=== PATIENT | female | born 1980 | race Two or more races ===

== ENCOUNTER 2020-07-06 08:58 | Day surgery (SDC) | payer MEDICAID ==
[2020-07-01 14:52] LABS: APPEARANCE,URINE CLEAR; BILIRUBIN, URINE NEGATIVE (NEGATIVE); COLOR,URINE PALE YELLOW; GLUCOSE, URINE (UA) NEGATIVE (NEGATIVE); KETONES,URINE NEGATIVE (NEGATIVE); LEUKOCYTE ESTERASE ,URINE NEGATIVE (NEGATIVE); NITRITE,URINE NEGATIVE (NEGATIVE); PH,URINE 7 (4.5-8.0); PROTEIN,URINE NEGATIVE (NEGATIVE); UROBILINOGEN,URINE NORMAL MG/DL (0.0-1.0)
[2020-07-01 14:55] LABS: BASOPHILS % (AUTO) 1.7 % (0.0-2.0); EOSINOPHILS % (AUTO) 3.5 % (0.0-3.0); HEMATOCRIT 44.7 % (37.0-47.0); HEMOGLOBIN 13.5 G/DL (12.0-16.0); LYMPHOCYTES % (AUTO) 36.1 % (20.0-45.0); MEAN CORPUSCULAR VOLUME 84 FL (80-99); MONOCYTES % (AUTO) 6.3 % (1.0-10.0); NEUTROPHILS % (AUTO) 52.4 % (45.0-75.0); PLATELET COUNT 409 K/UL (150-450); RED BLOOD COUNT 5.35 M/UL (4.20-5.40); WHITE BLOOD COUNT 8.5 K/UL (4.8-10.8)
--- NOTE | 2020-07-05 10:59 | Pre-op HX & Phy Repo 2 SIG ---
DATE OF ADMISSION: 07/06/2020 Scheduled for outpatient surgery, July 06, 2020. HISTORY OF PRESENT ILLNESS: The patient is a 39-year-old female in overall good health, who developed a nodule in her right breast upper inner quadrant. Imaging revealed in the right breast at 3 o'clock, 4 cm from the nipple, was a 2.4 x 1.5 x 2.3 cm mass. 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 She has no prior history of breast disease. No family history of breast cancer. She is scheduled to undergo excision of her phyllodes tumor. PAST MEDICAL HISTORY/MEDICATIONS: None. ALLERGIES: None. OPERATIONS: None. REVIEW OF SYSTEMS: She is 4, para 4. She has regular menstrual periods. PHYSICAL EXAMINATION: GENERAL: The patient is 5 feet 6 inches, 146 pounds. VITAL SIGNS: Within normal limits. HEENT: Within normal limits. LUNGS: Clear. HEART: Regular rhythm. BREASTS: Small to medium in size and slightly ptotic. The left breast is unremarkable. The right breast has a 2.5 cm mobile, smooth, rounded mass in the upper inner quadrant at 2 to 3 o'clock just medial to the areolar border. There is no axillary or supraclavicular lymphadenopathy. ABDOMEN: Soft. PELVIC: Per primary care. RECTAL: Per primary care. EXTREMITIES: Without edema. NEUROLOGIC: Physiologic. IMPRESSION: Phyllodes tumor, right breast. PLAN: Excision of right breast mass with core biopsy revealing phyllodes tumor. I have had a full discussion with the patient regarding the nature of her condition, the nature of the surgery, indications, alternatives, options, and risks including bleeding, infection, recurrence despite complete excision, need for additional treatment based on final pathology, potential for another tumor to develop in the same or other breast, scarring or distortion of the breast or nipple, etc. All questions have been answered. She understands and agrees to proceed. Jose Alfredo Jones M.D. DR: GALLO JOB#: [id number] CC:
[~2020-07-06] VITALS: Ht 167.6 cm; Wt 62.6 kg
[2020-07-06] VITALS (12 sets, daily range): BP systolic 96–120; BP diastolic 54–82
[2020-07-06] MEDS ORDERED: NS Irrig 1000ml ONE (08:59)
[2020-07-06] MEDS ORDERED: Sterile Water Irrig 1000ml IRRIG ONE (08:59)
[2020-07-06] MEDS ORDERED: LR 1000ml ONE (08:59)
[2020-07-06] MEDS ORDERED: Bupivacaine 0.5% Inj 30 ml vial INJ ONE (10:23)
[2020-07-06] MEDS ORDERED: Lidocaine 1% Plain 30 ml INJ ONE (10:24)
[2020-07-06] MEDS ORDERED: Bacitracin 50000 Units Vial ONE (10:24)
[2020-07-06] MEDS ORDERED: NeoSporin Gu Irrig 1ml Amp IRRIG ONE (10:24)
[2020-07-06] MEDS ORDERED: Midazolam 2mg/2ml Inj ONE (10:30)
[2020-07-06] MEDS ORDERED: fentaNYL 100 mcg/2 mL IV ONE (10:30)
[2020-07-06] MEDS ORDERED: Lidocaine 1% MPF 10mg/ml 5ml ONE (10:40)
--- NOTE | 2020-07-06 10:58 | Anethesia Preoperative Eval ---
Anesthesia Pre-op PMH/ROS General Date of Evaluation: Jul 06, 2020 Time of Evaluation: 10:55 Anesthesiologist: Juju ASA Score: ASA 2 Mallampati Score Class I : Soft palate, uvula, fauces, pillars visible Class II: Soft palate, uvula, fauces visible Class III: Soft palate, base of uvula visible Class IV: Only hard plate visible Mallampati Classification: Class II Surgeon: Karen Diagnosis: R breast mass Surgical Procedure: Excision of breast mass Anesthesia History: none Family History: no anesthesia problems Allergies: Coded Allergies: No Known Allergies (Unverified , 07/01/20) Medications: see eMAR Patient NPO?: Yes Past Medical History Cardiovascular: Denies: HTN, CAD, NE, valve dz, arrhythmia, other Pulmonary: Denies: asthma, COPD, [place], other Gastrointestinal/Genitourinary: Reports: GERD - mild; Denies: CRI, ESRD, other Neurologic/Psychiatric: Reports: depression/anxiety; Denies: dementia, CVA, TIA, other Endocrine: Denies: DM, hypothyroidism, steroids, other HEENT: Denies: cataract (L), cataract (R), glaucoma, [place] (L), [place] (R), other Hematology/Immune: Denies: anemia, DVT, bleeding disorder, other Musculoskeletal/Integumentary: Denies: OA, RA, DJD, DDD, edema, other PMH Narrative: as above PSxH Narrative: none Anesthesia Pre-op Phys. Exam Physician Exam Last Vital Signs Date Time Temp Pulse Resp B/P (MAP) Pulse Ox O2 Delivery O2 Flow Rate FiO2 07/06/20 09:22 98.1 88 18 119/82 98 Room Air Constitutional: NAD Neurologic: CN 2-12 intact Cardiovascular: RRR, no M/R/G Respiratory: CTA Gastrointestinal: S/NT/ND Airway Exam Mallampati Score: Class II MO: full Neck: flexible ROM: full Teeth: intact Dentures: no upper, no lower Anesthesia Pre-op A/P Labs see chart Urine Test Test 07/06/20 09:05 Urine HCG, Qualitative Negative (NEGATIVE) Risk Assessment & Plan Assessment: ASA 2 Plan: GA with LMA, PONV prevention Status Change Before Surgery: No Pre-Antibiotics Drug: Ancef 1gr. Given Within 1 Hr of Incision: Yes Time Given: 12:20 Vakulenko,Shan MD Jul 06, 2020 10:58
--- NOTE | 2020-07-06 11:36 | Pre-Procedure Note/Attestation ---
Pre-Procedure Note/Attestation Complete Prior to Procedure Planned Procedure: right Procedure Narrative: Excision of phyllodes tumor right breast Indications for Procedure Pre-Operative Diagnosis: phyllodes tumor right breast Attestation I attest that I discussed the nature of the procedure; its benefits; risks and complications; and alternatives (and the risks and benefits of such altern atives), prior to the procedure, with the patient (or the patient's legal pest control service representative). I attest that, if there was a reasonable possibility of needing a blood transfusion, the patient (or the patient's legal pest control service representative) was given the [facility] standardized written summary, pursuant to the [place] Blood Safety Act ([place] Health and Safety Code # 1645, as amended). I attest that I re-evaluated the patient just prior to the surgery and that there has been no change in the patient's H&P, except as documented below: none Jose Alfredo Jones MD Jul 06, 2020 11:35
[2020-07-06] MEDS ORDERED: Metoclopramide 10mg/2ml Inj IVP PRN (12:00)
[2020-07-06] MEDS ORDERED: Meperidine 25mg/1ml Inj (FOR RIGORS ONLY) IV PRN (12:00)
[2020-07-06] MEDS ORDERED: DiphenhydrAMINE 50mg/ml Inj IVP PRN (12:00)
[2020-07-06] MEDS ORDERED: Midazolam 2mg/2ml Inj IVP PRN (12:00)
[2020-07-06] MEDS ORDERED: Ketorolac 30mg Inj IV PRN (12:00)
[2020-07-06] MEDS ORDERED: LR 1000ml 1,000 ML IVLG SCH (12:00)
--- NOTE | 2020-07-06 12:36 | Brief Operative Note ---
Immediate Post Operative Note Operative Note Pre-op Diagnosis: phyllodes tumor right breast Procedure: excision right breast mass phyllodes tumor Post-op Diagnosis: same Post-op Diagnosis: same as pre-op Findings: consistent w/pre-op dx studies Surgeon: dinorah Anesthesiologist: chelsea Anesthesia: general Specimen: yes - right breast mass Complications: none Condition: stable Fluids: see anesthesia record Estimated Blood Loss: volume - 20cc Drains: none Implant(s) used?: No Jose Alfredo Jones MD Jul 06, 2020 12:36
[2020-07-06] MEDS ORDERED: D5 1/2NS 1,000 ML IV SCH (12:45)
[2020-07-06] MEDS ORDERED: HYDROcodone/Acetamin 5/325 tab ORAL PRN (12:45)
[2020-07-06] MEDS ORDERED: Tylenol #3 tab (300mg/30mg) ORAL PRN (12:45)
[2020-07-06] MEDS ORDERED: HYDROmorphone 1mg/ml Carpuject SUBQ PRN (12:45)
--- NOTE | 2020-07-06 13:29 | Operative Note - Dictated ---
DATE OF OPERATION: 07/06/2020 SURGEON: Jose Alfredo Jones MD. HYDROTREATER OPERATOR: None. ANESTHESIOLOGIST: Shan Matute MD. TYPE OF ANESTHESIA: General. PREOPERATIVE DIAGNOSIS: Right breast mass with core biopsy revealing phyllodes tumor. POSTOPERATIVE DIAGNOSIS: Right breast mass with core biopsy revealing phyllodes tumor. OPERATION PERFORMED: Excision of right breast mass phyllodes tumor. PROCEDURE IN DETAIL: The patient was taken to the operating room and under general anesthesia with sequential compression device stockings in place, she was prepped and draped in usual fashion. She had a palpable mass at 2 to 3 o'clock 4 cm from the nipple measuring 2.4 x 1.5 x 2.3 cm. A curvilinear incision was made overlying the mass in the upper inner quadrant of the right breast and flaps dissected circumferentially achieving hemostasis with cautery. The mass was palpable. There were multiple vessels penetrating into the area of the mass that were difficult to control with cautery. Accordingly, I used the [employer] electrosurgical vessel sealing device to achieve complete hemostasis. The tumor was enucleated in its entirety and given off the field for pathology. The field was irrigated with sterile water and then antibiotic solution and hemostasis carefully achieved. The incision was closed with interrupted 2-0 Vicryl deep dermal subcutaneous sutures followed by continuous 4-0 Vicryl subcuticular suture. Benzoin and half-inch Steri-Strips were applied followed by dry sterile dressing. Final sponge and needle counts were correct. The patient tolerated the procedure well and left the operating room in good condition. Jose Alfredo Jones M.D. DR: Waleska JOB#: [id number] CC:
--- NOTE | 2020-07-06 15:12 | Immediate Post-Op Evaluation ---
Immediate Post-Op Evalulation Immediate Post-Op Evalulation Procedure: Excision of R breast mass Date of Evaluation: Jul 06, 2020 Time of Evaluation: 12:20 IV Fluids: 1000 Blood Products: none Estimated Blood Loss: 50 Urinary Output: none Blood Pressure Systolic: 108 Blood Pressure Diastolic: 56 Pulse Rate: 68 Respiratory Rate: 20 O2 Sat by Pulse Oximetry: 98 Temperature (Fahrenheit): 97.7 Pain Score (1-10): 2 Nausea: No Vomiting: No Complications none Patient Status: awake, patent, none Hydration Status: adequate Shan Matute MD Jul 06, 2020 15:12
--- NOTE | 2020-07-06 15:14 | 48 Hour Post Anesthesia Eval ---
Post Anesthesia Evaluation Procedure: Excision of R breast mass Date of Evaluation: Jul 06, 2020 Time of Evaluation: 15:13 Blood Pressure Systolic: 108 0: 56 Pulse Rate: 72 Respiratory Rate: 20 Temperature (Fahrenheit): 97.6 O2 Sat by Pulse Oximetry: 98 Airway: patent Nausea: No Vomiting: No Pain Intensity: 1 Hydration Status: adequate Cardiopulmonary Status: stable Mental Status/LOC: patient returned to baseline Follow-up Care/Observations: n/a Post-Anesthesia Complications: none Follow-up care needed: ready to discharge Shan Matute MD Jul 06, 2020 15:14
== END 2020-07-06 14:30 | disposition home or self-care (01) ==
LOC: SUR 08:58
DX: D48.61 Neoplasm of uncertain behavior of right breast (principal); K21.9 Gastro-esophageal reflux disease without esophagitis; F32.9 Major depressive disorder, single episode, unspecified; F41.9 Anxiety disorder, unspecified
CPT/HCPCS: 36415; 81001; 81025; 85025; 85610; 85730; 94003; 94150; J2250; J2405